=== PATIENT | female | born 1985 | race African-American/Black ===

== ENCOUNTER 2020-08-15 07:56 | Emergency (ER) | payer OTHER, SELFPAY ==
[2020-08-15 07:57] VITALS: BP 116/63; PULSE 86; RESP 18; TEMP 36.3; O2SAT 98; BMI 24.7
--- NOTE | 2020-08-15 08:40 | ED.ALLEREA ---
HPI - Allergic Reaction General Chief complaint: General Medical Stated complaint: ALLERGIC REACTION Time Seen by Provider: 08/15/20 08:37 Source: patient Mode of arrival: ambulatory Limitations: no limitations History of Present Illness MD complaint: allergic reaction and hives Onset (ago): day(s) ( patient reports it has been on and off for 2 years although this new rash started yesterday) Exposure: other ( Possibly Axe cologne) Symptoms: rash and itching Severity: moderate Treatment prior to arrival: benadryl Previous Allergic Reaction History: none Related Data Previous Rx's Medication Instructions Recorded diphenhydramine HCl [Benadryl 50 mg PO TID PRN #20 tab 08/15/20 Allergy] famotidine [Pepcid] 20 mg PO BID #10 tab 08/15/20 hydrocortisone [Anti-Itch (HC)] 1 appl TOPICAL BID PRN #453.6 g 08/15/20 prednisone 40 mg PO DAILY 5 Days #10 tab 08/15/20 Allergies Allergy/AdvReac Type Severity Reaction Status Date / Time venlafaxine [VENLAFAXINE] Allergy Unknown HIVES Unverified 11/01/19 18:46 Review of Systems Review of Systems: Constitutional : No Fever, No Chills , no body aches, no recent illness Head/Face: No facial swelling, No facial redness ENT/Mouth : No oral/throat swelling, No Hoarseness, No Swallowing Difficulty Eyes: No Eye Pain, No Swelling, No Redness Cardiovascular : No Chest Pain, No SOB, No palpitations Respiratory : No Cough, No Sputum, No Wheezing, No Smoke Exposure, No Dyspnea Gastrointestinal : No Nausea, No Vomiting, No Diarrhea, No abdominal Pain Genitourinary : No Dysuria, No Urinary Frequency, No Hematuria Musculoskeletal : No joint pain, No Myalgias, No Joint Swelling Skin : No Skin Lesions, positive rash Neuro : No Weakness, No Numbness, No Headache, No dizziness, No tingling Psych : No Anxiety/Panic, No Depression Heme/Lymph: No Bruising, No Lymphadenopathy Endocrine : No Polyuria, No Polydipsia Patient admits to new cologne Axe cologne which may be causing this Denies changes in lotions or detergents. Denies new medications or any changes in medications. Denies drainage from rash. Denies any recent sick contacts or recent travel. Yes all other systems are reviewed and are negative [facility] Past Medical History Attestation statement: The following information was validated with the patient. Medical History Arthritis Cholecystectomy planned Collapsed lung Social History Social History Advance Directives: No Advance Directives Information Provided: No Physical Exam Vital Signs: Vital Signs: Last Vital Signs Temp 97.4 F 08/15/20 07:57 Pulse 86 08/15/20 07:57 Resp 18 08/15/20 07:57 BP 116/63 08/15/20 07:57 Pulse Ox 98 08/15/20 07:57 Body Mass Index 24.7 vital signs have been reviewed as normal and appeared to be correct. Blood pressure normal. Heart rate normal. Respiration rate normal. Temperature normal. Oxygen saturation normal. Appearance: Alert. Oriented X3. No acute distress. Head: Normal external exam. Normocephalic. Eyes: PERRLA. EOMI. Conjunctiva and sclera normal. Eyelids normal. ENT: Pharynx normal. Uvula midline. Moist mucous membranes. No trismus noted. No drooling noted. No muffled voice noted. Neck: Normal inspection. Neck supple. FROM. No adenopathy. No meningeal signs. CVS: Normal heart rate and rhythm. Heart sound normal. No murmurs noted. Pulses normal throughout. Respiratory: No respiratory distress. Painless inspiration. Breath sounds normal. No wheezes/rales/rhonchi noted. Chest nontender. No accessory muscle usage noted or decreased air movement noted. Abdomen: Soft and nontender. Nondistended. No guarding. No rigidity. Bowel sounds normal in all 4 quadrants. No distention noted. No organomegaly noted. No visible injury noted. Back: Full range of motion noted. Skin: Skin warm and dry. Normal skin color. Normal skin turgor. erythematous blanchable and well demarcated macular papular lesions noted throughout her body consistent with allergic reaction.No lesions/lacerations noted. Extremities: Extremities exhibit normal range of motion. Extremities nontender. Neuro: Oriented X 3. No motor deficit. No sensory deficit. Reflexes normal. Normal steady gait. Course Course Course Narrative: IMP/Plan: Allergic rxn. Not anaphylaxis. Not sepsis/ infectious etiology. Patient well appearing in no acute distress, breathing easily without throat symptoms. Speaking full sentences, and handling secretions without difficulty. There is no obvious threat to airway. Lungs are CTA in all villar. No signs of angioedema, stridor, airway compromise, anaphylaxis or anaphylactic shock. Not c/w SSSS/ TEN/ Eryth multiforme/ Haq Johnsons. Given HPI and PE - Will watch and observe. If patient continues to be symptom free - will d/c with return precautions. Patient understands and agrees with plan MDM - Allergic Reaction Medical Records Attestation: I reviewed the patient's medical records. Discharge Plan Discharge Clinical Impression: Allergic reaction Patient Disposition: Home, Self-Care Instructions: Anaphylaxis (ED), Allergies (ED), Allergy Testing (ED) Prescriptions: New diphenhydramine HCl [Benadryl Allergy] 25 mg tablet 50 mg PO TID PRN (Reason: allergic reaction) Qty: 20 RF: 0 famotidine [Pepcid] 20 mg tablet 20 mg PO BID Qty: 10 RF: 0 prednisone 20 mg tablet 40 mg PO DAILY 5 Days Qty: 10 RF: 0 hydrocortisone [Anti-Itch (HC)] 1 % ointment 1 appl topical BID PRN (Reason: allergic reaction) Qty: 453.6 RF: 0 Referrals: Physician,Unknown [Primary Care Provider] - 2 days ( Your PCP and ask for allergy testing or referral to an russian teacher) Print Language: Croatian
== END 2020-08-15 08:54 | disposition home or self-care (01) ==
PROVIDERS: Emergency Provider Emergency Medicine Emergency Medical Services
DX: T78.40XA Allergy, unspecified, initial encounter (principal); X58.XXXA Exposure to other specified factors, initial encounter
CPT/HCPCS: 99283

== ENCOUNTER 2020-09-02 09:01 | Outpatient (REF) | payer OTHER, SELFPAY ==
[2020-09-02 09:30] LABS: MANUAL DIFF FLAG NO
[2020-09-02 09:40] LABS: Basophils Percent Auto 0.4 % (0-2); Eosinophils Absolute Auto 0.3 X10*3/uL (0.0-0.4); Eosinophils Percent Auto 6.7 % (0-4); Hematocrit 37.6 % (37-47); Hemoglobin 12.2 g/dl (12.0-16.0); Imm Gran Abs Auto 0.01 X10*3/uL (0.00-0.03); Imm Gran Pct Auto 0.2 % (0.0-0.4); Lymphocytes Absolute Auto 1.8 X10*3/uL (1.2-4.9); Lymphocytes Percent Auto 39.4 % (20-40); Mean Corpuscular HGB Conc 32.4 g/dl (31.0-35.0); Mean Corpuscular Hemoglobin 26.4 pg (27.0-33.0); Mean Corpuscular Volume 81.4 fL (80-98); Mean Platelet Volume 9.8 fL (9.4-12.3); Monocytes Absolute Auto 0.3 X10*3/uL (0.1-1.2); Monocytes Percent Auto 7.6 % (2-11); Neutrophils Absolute Auto 2.1 X10*3/uL (2.0-8.3); Neutrophils Percent Auto 45.7 % (45-73); Platelet Count 222 X10*3/uL (160-400); Red Blood Count 4.62 X10*6/uL (4.20-5.50); Red Cell Distribution Width 14.4 % (11.0-16.0); White Blood Count 4.5 X10*3/uL (4.8-10.8)
[2020-09-02 09:48] LABS: Estimated Average Glucose 114 mg/dL; Hemoglobin A1c % 5.6 %
[2020-09-02 10:14] LABS: Alanine Aminotransferase 11 U/L (0-31); Albumin Level 3.9 g/dL (3.5-5.0); Alkaline Phosphatase 60 U/L (39-117); Anion Gap 11 (12-20); Aspartate Amino Transferase 16 U/L (5-31); Bilirubin Total 0.3 mg/dL (0.0-1.0); Blood Urea Nitrogen 9 mg/dL (9-16); Calcium 9.1 mg/dL (8.4-10.2); Carbon Dioxide 22 mmol/L (22-29); Chloride 108 mmol/L (96-108); Cholesterol 136 mg/dL; Estimated Glomerular Filt Rate > 60; Glucose Random 91 mg/dL (60-115); HDL Cholesterol 57 mg/dL; Iron 52 mcg/dL (30-160); LDL Cholesterol Calculated 72 mg/dl; Magnesium 2.1 mg/dL (1.6-2.6); Percent Iron Saturation 17 % (15-50); Potassium 3.9 mmol/L (3.3-5.1); Sodium 137 mmol/L (135-145); Total Iron Binding Capacity 299 mcg/dL (228-428); Total Protein 6.8 g/dL (6.5-8.0); Triglycerides 38 mg/dL; Unsaturated Iron Binding 247 ug/dL
[2020-09-02 10:31] LABS: Ferritin 63 ng/mL (10-122); T4 Thyroxine 6.1 ug/dL (4.5-12.0); Vitamin D 25-OH Total 20.3 ng/mL (>30)
[2020-09-02 10:39] LABS: Folate 13.2 ng/mL (> or = 4.0)
[2020-09-03 15:43] LABS: Vitamin B12 337 pg/mL (200-900)
== END 2020-09-02 09:02 | disposition home or self-care (01) ==
LOC: HO.LAB 09:01
PROVIDERS: Visit Provider Counselor Addiction (Substance Use Disorder)
DX: F33.2 Major depressive disorder, recurrent severe without psychotic features (principal); F41.1 Generalized anxiety disorder; F43.12 Post-traumatic stress disorder, chronic; F19.21 Other psychoactive substance dependence, in remission; F90.0 Attention-deficit hyperactivity disorder, predominantly inattentive type
CPT/HCPCS: 36415; 80053; 80061; 82306; 82607; 82728; 82746; 83036; 83540; 83735; 84436; 84443; 85025

== ENCOUNTER 2021-01-28 18:43 | Emergency (ER) | payer OTHER, SELFPAY ==
[2021-01-28 19:05] VITALS: PULSE 95; RESP 16; TEMP 36.9; O2SAT 99; BMI 22.1
[2021-01-28 19:10] VITALS: BP 123/81
--- NOTE | 2021-01-28 21:34 | ED_ITS ---
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 Patient wants to speak to a counselor and get into detox. Not suicidal or homicidal. Patient states she is tired and thats why she is here. Not suicidal or homi cidal. <Al Spicer MD - Last Filed: 01/29/21 00:04> Onset (ago): hour(s) <Al Spicer MD - Last Filed: 01/29/21 00:04> Severity: moderate <Al Spicer MD - Last Filed: 01/29/21 00:04> Associated symptoms: denies other symptoms <Al Spicer MD - Last Filed: 01/29/21 00:04> Related Data Home medications: Home Medications Medication Instructions Recorded Confirmed fluoxetine 40 mg capsule 1 cap PO DAILY 01/29/21 01/29/21 prazosin 1 mg capsule 1 cap PO BID 01/29/21 01/29/21 quetiapine 25 mg tablet 25 mg PO BEDTIME 01/29/21 01/29/21 <Al Spicer MD - Last Filed: 01/29/21 00:04> Allergies/adverse reactions: Allergies Allergy/AdvReac Type Severity Reaction Status Date / Time venlafaxine [VENLAFAXINE] Allergy Unknown HIVES Unverified 11/01/19 18:46 <Al Spicer MD - Last Filed: 01/29/21 00:04> Review of Systems Constitutional: Constitutional: Reports no additional constitutional complaints <Al Spicer MD - Last Filed: 01/29/21 00:04> Eyes: Eyes: Reports no additional eye complaints <Al Spicer MD - Last Filed: 01/29/21 00:04> ENT: Denies dizziness <Al Spicer MD - Last Filed: 01/29/21 00:04> Cardiovascular: Cardiovascular: Reports no additional cardiovascular complaints <Al Spicer MD - Last Filed: 01/29/21 00:04> Respiratory: Respiratory: Reports as per HPI <Al Spicer MD - Last Filed: 01/29/21 00:04> Gastrointestinal: Gastrointestinal: Reports no additional gastrointestinal complaints <Al Spicer MD - Last Filed: 01/29/21 00:04> Genitourinary: Genitourinary: Reports no additional female genitourinary compl aints <Al Spicer MD - Last Filed: 01/29/21 00:04> Musculoskeletal: Musculoskeletal: Reports no additional musculoskeletal complaints <Al Spicer MD - Last Filed: 01/29/21 00:04> Integumentary/Breasts: Skin/Breast: Denies rash <Al Spicer MD - Last Filed: 01/29/21 00:04> Neurologic: Reports system reviewed and no additional complaints, except as documented, Denies dizziness and Denies Sensory deficit (Neuro) <Al Spicer MD - Last Filed: 01/29/21 00:04> Psychiatric: Psychiatric: Denies anxiety <Al Spicer MD - Last Filed: 01/29/21 00:04> [facility] Past Medical History Medical History: Medical History Arthritis Cholecystectomy planned Collapsed lung <Al Spicer MD - Last Filed: 01/29/21 00:04> Social History Social History: Social History Advance Directives: No Advance Directives Information Provided: Yes <Al Spicer MD - Last Filed: 01/29/21 00:04> Physical Exam Vital Signs: Vital Signs: Last Vital Signs Temp 97.8 F 01/29/21 01:08 Pulse 109 H 01/29/21 01:08 Resp 17 01/29/21 01:08 BP 130/85 01/29/21 01:08 Pulse Ox 99 01/29/21 01:08 BMI result Body Mass Index 22.1 <Al Spicer MD - Last Filed: 01/29/21 00:04> Vital Signs: Last Vital Signs Temp 97.8 F 01/29/21 01:08 Pulse 109 H 01/29/21 01:08 Resp 17 01/29/21 01:08 BP 130/85 01/29/21 01:08 Pulse Ox 99 01/29/21 01:08 BMI result Body Mass Index 22.1 <Pamela Quigley NP - Last Filed: 01/29/21 08:20> Const: Other: jittery and slightly slurred <Al Spicer MD - Last Filed: 01/29/21 00:04> Nutritional Appearance: average body habitus <Al Spicer MD - Last Filed: 01/29/21 00:04> Orientation/consciousness: oriented to person and patient oriented x3 <Al Spicer MD - Last Filed: 01/29/21 00:04> Limitations: no limitations <Al Spicer MD - Last Filed: 01/29/21 00:04> HENMT: Head: Yes normal to inspection <Al Spicer MD - Last Filed: 01/29/21 00:04> Ears: external ears normal <Al Spicer MD - Last Filed: 01/29/21 00:04> General nose exam: Normal external nose present <Al Spicer MD - Last Filed: 01/29/21 00:04> Mouth: Normal oral and palatal mucosa present and oropharynx normal <Al Spicer MD - Last Filed: 01/29/21 00:04> Throat: Yes posterior oropharynx normal <Al Spicer MD - Last Filed: 01/29/21 00:04> Eyes: General: appearance normal, both eyes and all related structures <Al Spicer MD - Last Filed: 01/29/21 00:04> Neck: Other: supple <Al Spicer MD - Last Filed: 01/29/21 00:04> Neck: Yes normal visual inspection <Al Spicer MD - Last Filed: 01/29/21 00:04> Chest: Chest palpation & inspection: normal inspection of the chest <Al Spicer MD - Last Filed: 01/29/21 00:04> Resp: Auscultation: clear to auscultation bilaterally <Al Spicer MD - Last Filed: 01/29/21 00:04> Cardio: Jugular venous distension: no JVD <Al Spicer MD - Last Filed: 01/29/21 00:04> Rate: regular rate <Al Spicer MD - Last Filed: 01/29/21 00:04> Rhythm: regular rhythm <Al Spicer MD - Last Filed: 01/29/21 00:04> Heart sounds: S1 normal heart sound present and S2 normal heart sound present <Al Spicer MD - Last Filed: 01/29/21 00:04> GI: Inspection: Yes normal to inspection <Al Spicer MD - Last Filed: 01/29/21 00:04> Palpation (GI): Soft to palpation, nontender and No hepatosplenomegaly present <Al Spicer MD - Last Filed: 01/29/21 00:04> Auscultation: normal bowel sounds <Al Spicer MD - Last Filed: 01/29/21 00:04> : General: Yes no CVA tenderness <Al Spicer MD - Last Filed: 01/29/21 00:04> Back/Spine/Pelvis: Back: no CVA tenderness <Al Spicer MD - Last Filed: 01/29/21 00:04> Skin: General skin exam: no rashes or lesions noted <Al Spicer MD - Last Filed: 01/29/21 00:04> Neuro: General: oriented to person and patient oriented x3 <Al Spicer MD - Last Filed: 01/29/21 00:04> Cranial nerves: Yes CN's II-XII intact bilaterally <Al Spicer MD - Last Filed: 01/29/21 00:04> Motor exam (neuro): 5/5 motor strength present throughout <Al Spicer MD - Last Filed: 01/29/21 00:04> Sensory Exam: No Sensory deficit (Neuro) <Al Spicer MD - Last Filed: 01/29/21 00:04> Extrem: General: Yes normal to inspection <Al Spicer MD - Last Filed: 01/29/21 00:04> Psych: Appearance: grossly normal <Al Spicer MD - Last Filed: 01/29/21 00:04> Course Reevaluation(s) Reevaluation #1: physician observation started at 11:50pm, reason for observation is recovery team to re evaluate for placement in a program tomorrow. Vitals are stable resting more comfortably now. <Al Spicer MD - Last Filed: 01/29/21 00:04> Time: 00:03 <Al Spicer MD - Last Filed: 01/29/21 00:04> Reevaluation #2: 01/29 815-patient is currently pending a evaluation by the assistant men's lacrosse coach. No complaints per nursing overnight. Vital signs reviewed and stable. Respiratory even labored. Will continue physician observation pending disposition <Pamela Quigley NP - Last Filed: 01/29/21 08:20> Medical Decision Making Lab Data Result diagrams: : 01/28/21 21:57 01/28/21 21:57 <Al Spicer MD - Last Filed: 01/29/21 00:04> Labs: Lab Results 01/28/21 01/28/21 01/28/21 Range/Units 21:53 21:57 21:57 WBC 5.3 (4.8-10.8) X10*3/uL RBC 4.92 (4.20-5.50) X10*6/uL Hgb 13.4 (12.0-16.0) g/dl Hct 40.3 (37.0-47.0) % MCV 81.9 (80.0-98.0) fL MCH 27.2 (27.0-33.0) pg MCHC 33.3 (31.0-35.0) g/dl RDW 13.5 (11.0-16.0) % Plt Count 244 (160-400) X10*3/uL MPV 9.9 (9.4-12.3) fL Immature Gran % (Auto) 0.2 (0.0-0.4) % Neut % (Auto) 44.1 L (45-73) % Lymph % (Auto) 42.4 H (20-40) % [place] % (Auto) 8.9 (2-11) % Eos % (Auto) 3.8 (0-4) % Baso % (Auto) 0.6 (0-2) % Lymph # (Auto) 2.2 (1.2-4.9) X10*3/uL [place] # (Auto) 0.5 (0.1-1.2) X10*3/uL Eos # (Auto) 0.2 (0.0-0.4) X10*3/uL Baso # (Auto) 0.0 (0.0-0.2) X10*3/uL Abs Immat Gran (auto) 0.01 (0.00-0.03) X10*3/uL Absolute Neuts (auto) 2.3 (2.0-8.3) x10*3/uL Absolute Nucleated RBC 0.000 (0.0-0.012) X10*3/uL Nucleated RBC % (auto) 0.0 (0.0-0.2) /100WBC Sodium 141 (135-145) mmol/L Potassium 3.4 (3.3-5.1) mmol/L Chloride 110 H (96-108) mmol/L Carbon Dioxide 24 (22-29) mmol/L Anion Gap 10 L (12-20) BUN 7 L (9-16) mg/dL Creatinine 0.84 (0.5-1.4) mg/dL Estim Creat Clear Calc 97.7 Estimated GFR > 60 Random Glucose 95 (60-115) mg/dL Calcium 9.5 (8.4-10.2) mg/dL Total Bilirubin 0.2 (0.0-1.0) mg/dL AST 30 D (5-31) U/L ALT 22 (0-31) U/L Alkaline Phosphatase 63 (39-117) U/L Total Protein 7.1 (6.5-8.0) g/dL Albumin 4.1 (3.5-5.0) g/dL Urine Color Urine Appearance Urine pH (5.0-8.0) Ur Specific [place] (1.005-1.025) Urine Protein (NEG-TRACE) MG/DL Urine Glucose (UA) (NEG) MG/DL Urine Ketones (NEG) MG/DL Urine Blood (NEG) Urine Nitrite (NEG) Ur Leukocyte Esterase (NEG) Urine Opiates Screen (Not Detect) Urine Fentanyl Screen (Not Detect) Ur Barbiturates Screen (Not Detect) Ur Phencyclidine Scrn (Not Detect) Ur Amphetamines Screen (Not Detect) U Benzodiazepines Scrn (Not Detect) Urine Cocaine Screen (Not Detect) U Marijuana (THC) Screen (Not Detect) Ethyl Alcohol mg/dL COVID-19 ([facility]) Negative (Negative) COVID-19 Clin Com See Note 01/28/21 01/28/21 01/28/21 Range/Units 21:57 21:57 22:08 WBC (4.8-10.8) X10*3/uL RBC (4.20-5.50) X10*6/uL Hgb (12.0-16.0) g/dl Hct (37.0-47.0) % MCV (80.0-98.0) fL MCH (27.0-33.0) pg MCHC (31.0-35.0) g/dl RDW (11.0-16.0) % Plt Count (160-400) X10*3/uL MPV (9.4-12.3) fL Immature Gran % (Auto) (0.0-0.4) % Neut % (Auto) (45-73) % Lymph % (Auto) (20-40) % [place] % (Auto) (2-11) % Eos % (Auto) (0-4) % Baso % (Auto) (0-2) % Lymph # (Auto) (1.2-4.9) X10*3/uL [place] # (Auto) (0.1-1.2) X10*3/uL Eos # (Auto) (0.0-0.4) X10*3/uL Baso # (Auto) (0.0-0.2) X10*3/uL Abs Immat Gran (auto) (0.00-0.03) X10*3/uL Absolute Neuts (auto) (2.0-8.3) x10*3/uL Absolute Nucleated RBC (0.0-0.012) X10*3/uL Nucleated RBC % (auto) (0.0-0.2) /100WBC Sodium (135-145) mmol/L Potassium (3.3-5.1) mmol/L Chloride (96-108) mmol/L Carbon Dioxide (22-29) mmol/L Anion Gap (12-20) BUN (9-16) mg/dL Creatinine (0.5-1.4) mg/dL Estim Creat Clear Calc Estimated GFR Random Glucose (60-115) mg/dL Calcium (8.4-10.2) mg/dL Total Bilirubin (0.0-1.0) mg/dL AST (5-31) U/L ALT (0-31) U/L Alkaline Phosphatase (39-117) U/L Total Protein (6.5-8.0) g/dL Albumin (3.5-5.0) g/dL Urine Color YELLOW Urine Appearance CLEAR Urine pH 5.5 (5.0-8.0) Ur Specific [place] >= 1.030 H (1.005-1.025) Urine Protein NEG (NEG-TRACE) MG/DL Urine Glucose (UA) NEG (NEG) MG/DL Urine Ketones NEG (NEG) MG/DL Urine Blood NEG (NEG) Urine Nitrite NEG (NEG) Ur Leukocyte Esterase NEG (NEG) Urine Opiates Screen Not Detected (Not Detect) Urine Fentanyl Screen POSITIVE H (Not Detect) Ur Barbiturates Screen Not Detected (Not Detect) Ur Phencyclidine Scrn Not Detected (Not Detect) Ur Amphetamines Screen Not Detected (Not Detect) U Benzodiazepines Scrn Not Detected (Not Detect) Urine Cocaine Screen POSITIVE H (Not Detect) U Marijuana (THC) Screen Not Detected (Not Detect) Ethyl Alcohol < 10 mg/dL COVID-19 ([facility]) (Negative) COVID-19 Clin Com <Al Spicer MD - Last Filed: 01/29/21 00:04> Lab Results 01/28/21 01/28/21 01/28/21 Range/Units 21:53 21:57 21:57 WBC 5.3 (4.8-10.8) X10*3/uL RBC 4.92 (4.20-5.50) X10*6/uL Hgb 13.4 (12.0-16.0) g/dl Hct 40.3 (37.0-47.0) % MCV 81.9 (80.0-98.0) fL MCH 27.2 (27.0-33.0) pg MCHC 33.3 (31.0-35.0) g/dl RDW 13.5 (11.0-16.0) % Plt Count 244 (160-400) X10*3/uL MPV 9.9 (9.4-12.3) fL Immature Gran % (Auto) 0.2 (0.0-0.4) % Neut % (Auto) 44.1 L (45-73) % Lymph % (Auto) 42.4 H (20-40) % [place] % (Auto) 8.9 (2-11) % Eos % (Auto) 3.8 (0-4) % Baso % (Auto) 0.6 (0-2) % Lymph # (Auto) 2.2 (1.2-4.9) X10*3/uL [place] # (Auto) 0.5 (0.1-1.2) X10*3/uL Eos # (Auto) 0.2 (0.0-0.4) X10*3/uL Baso # (Auto) 0.0 (0.0-0.2) X10*3/uL Abs Immat Gran (auto) 0.01 (0.00-0.03) X10*3/uL Absolute Neuts (auto) 2.3 (2.0-8.3) x10*3/uL Absolute Nucleated RBC 0.000 (0.0-0.012) X10*3/uL Nucleated RBC % (auto) 0.0 (0.0-0.2) /100WBC Sodium 141 (135-145) mmol/L Potassium 3.4 (3.3-5.1) mmol/L Chloride 110 H (96-108) mmol/L Carbon Dioxide 24 (22-29) mmol/L Anion Gap 10 L (12-20) BUN 7 L (9-16) mg/dL Creatinine 0.84 (0.5-1.4) mg/dL Estim Creat Clear Calc 97.7 Estimated GFR > 60 Random Glucose 95 (60-115) mg/dL Calcium 9.5 (8.4-10.2) mg/dL Total Bilirubin 0.2 (0.0-1.0) mg/dL AST 30 D (5-31) U/L ALT 22 (0-31) U/L Alkaline Phosphatase 63 (39-117) U/L Total Protein 7.1 (6.5-8.0) g/dL Albumin 4.1 (3.5-5.0) g/dL Urine Color Urine Appearance Urine pH (5.0-8.0) Ur Specific [place] (1.005-1.025) Urine Protein (NEG-TRACE) MG/DL Urine Glucose (UA) (NEG) MG/DL Urine Ketones (NEG) MG/DL Urine Blood (NEG) Urine Nitrite (NEG) Ur Leukocyte Esterase (NEG) Urine Opiates Screen (Not Detect) Urine Fentanyl Screen (Not Detect) Ur Barbiturates Screen (Not Detect) Ur Phencyclidine Scrn (Not Detect) Ur Amphetamines Screen (Not Detect) U Benzodiazepines Scrn (Not Detect) Urine Cocaine Screen (Not Detect) U Marijuana (THC) Screen (Not Detect) Ethyl Alcohol mg/dL COVID-19 ([facility]) Negative (Negative) COVID-19 Clin Com See Note 01/28/21 01/28/21 01/28/21 Range/Units 21:57 21:57 22:08 WBC (4.8-10.8) X10*3/uL RBC (4.20-5.50) X10*6/uL Hgb (12.0-16.0) g/dl Hct (37.0-47.0) % MCV (80.0-98.0) fL MCH (27.0-33.0) pg MCHC (31.0-35.0) g/dl RDW (11.0-16.0) % Plt Count (160-400) X10*3/uL MPV (9.4-12.3) fL Immature Gran % (Auto) (0.0-0.4) % Neut % (Auto) (45-73) % Lymph % (Auto) (20-40) % [place] % (Auto) (2-11) % Eos % (Auto) (0-4) % Baso % (Auto) (0-2) % Lymph # (Auto) (1.2-4.9) X10*3/uL [place] # (Auto) (0.1-1.2) X10*3/uL Eos # (Auto) (0.0-0.4) X10*3/uL Baso # (Auto) (0.0-0.2) X10*3/uL Abs Immat Gran (auto) (0.00-0.03) X10*3/uL Absolute Neuts (auto) (2.0-8.3) x10*3/uL Absolute Nucleated RBC (0.0-0.012) X10*3/uL Nucleated RBC % (auto) (0.0-0.2) /100WBC Sodium (135-145) mmol/L Potassium (3.3-5.1) mmol/L Chloride (96-108) mmol/L Carbon Dioxide (22-29) mmol/L Anion Gap (12-20) BUN (9-16) mg/dL Creatinine (0.5-1.4) mg/dL Estim Creat Clear Calc Estimated GFR Random Glucose (60-115) mg/dL Calcium (8.4-10.2) mg/dL Total Bilirubin (0.0-1.0) mg/dL AST (5-31) U/L ALT (0-31) U/L Alkaline Phosphatase (39-117) U/L Total Protein (6.5-8.0) g/dL Albumin (3.5-5.0) g/dL Urine Color YELLOW Urine Appearance CLEAR Urine pH 5.5 (5.0-8.0) Ur Specific [place] >= 1.030 H (1.005-1.025) Urine Protein NEG (NEG-TRACE) MG/DL Urine Glucose (UA) NEG (NEG) MG/DL Urine Ketones NEG (NEG) MG/DL Urine Blood NEG (NEG) Urine Nitrite NEG (NEG) Ur Leukocyte Esterase NEG (NEG) Urine Opiates Screen Not Detected (Not Detect) Urine Fentanyl Screen POSITIVE H (Not Detect) Ur Barbiturates Screen Not Detected (Not Detect) Ur Phencyclidine Scrn Not Detected (Not Detect) Ur Amphetamines Screen Not Detected (Not Detect) U Benzodiazepines Scrn Not Detected (Not Detect) Urine Cocaine Screen POSITIVE H (Not Detect) U Marijuana (THC) Screen Not Detected (Not Detect) Ethyl Alcohol < 10 mg/dL COVID-19 ([facility]) (Negative) COVID-19 Clin Com <Pamela Quigley NP - Last Filed: 01/29/21 08:20> Discharge Plan Discharge Clinical Impression: Polysubstance abuse <Al Spicer MD - Last Filed: 01/29/21 00:04> Prescriptions: No Action fluoxetine 40 mg capsule 1 cap PO DAILY RF: 0 prazosin 1 mg capsule 1 cap PO BID RF: 0 quetiapine 25 mg tablet 25 mg PO BEDTIME RF: 0 <Al pSicer MD - Last Filed: 01/29/21 00:04>
--- NOTE | 2021-01-28 21:54 | MHC.RECOVSUP ---
? Reason for consult: Counter Professional Support o ? ? ?Current location: ?[facility] o ? ? ?Identified substance use concern: Crack/Cocaine Alcohol, Heroine - Withdrawal - Seeking ATS (detox) - Support ? ?Intervention: o MAT started or to be started o Community resources provided o Harm reduction discussion ? Plan: o Referral to [facility] o Bed search in progress to o Follow up tomorrow ? ? Additional information:?I was able to connect with Pt and suggest detox and treatment. Pt. was extremely physically uncomfortable and I suggested a MAT with team. Pt. is willing to go to detox maxi. I was able to call area detox's but no answer. Care team was notified.
[2021-01-28 22:01] VITALS: BP 126/72; PULSE 100; RESP 18; TEMP 36.7; O2SAT 100
[2021-01-28 22:03] LABS: MANUAL DIFF FLAG NO
[2021-01-28] MEDS: methADONE HCl 20 MG/2 ML ORAL.CONC PO (22:04)
[2021-01-28 22:05] LABS: Basophils Percent Auto 0.6 % (0-2); Eosinophils Absolute Auto 0.2 X10*3/uL (0.0-0.4); Eosinophils Percent Auto 3.8 % (0-4); Hematocrit 40.3 % (37.0-47.0); Hemoglobin 13.4 g/dl (12.0-16.0); Imm Gran Abs Auto 0.01 X10*3/uL (0.00-0.03); Imm Gran Pct Auto 0.2 % (0.0-0.4); Lymphocytes Absolute Auto 2.2 X10*3/uL (1.2-4.9); Lymphocytes Percent Auto 42.4 % (20-40); Mean Corpuscular HGB Conc 33.3 g/dl (31.0-35.0); Mean Corpuscular Hemoglobin 27.2 pg (27.0-33.0); Mean Corpuscular Volume 81.9 fL (80.0-98.0); Mean Platelet Volume 9.9 fL (9.4-12.3); Monocytes Absolute Auto 0.5 X10*3/uL (0.1-1.2); Monocytes Percent Auto 8.9 % (2-11); Neutrophils Absolute Auto 2.3 x10*3/uL (2.0-8.3); Neutrophils Percent Auto 44.1 % (45-73); Platelet Count 244 X10*3/uL (160-400); Red Blood Count 4.92 X10*6/uL (4.20-5.50); Red Cell Distribution Width 13.5 % (11.0-16.0); White Blood Count 5.3 X10*3/uL (4.8-10.8)
[2021-01-28 22:20] LABS: COVID-19 Test Negative (Negative)
[2021-01-28 22:21] LABS: Ethanol < 10 mg/dL
[2021-01-28 22:25] LABS: Alanine Aminotransferase 22 U/L (0-31); Albumin Level 4.1 g/dL (3.5-5.0); Alkaline Phosphatase 63 U/L (39-117); Anion Gap 10 (12-20); Aspartate Amino Transferase 30 U/L (5-31); Bilirubin Total 0.2 mg/dL (0.0-1.0); Blood Urea Nitrogen 7 mg/dL (9-16); Calcium 9.5 mg/dL (8.4-10.2); Carbon Dioxide 24 mmol/L (22-29); Chloride 110 mmol/L (96-108); Creatinine Clr Calc Pharmacy 97.7; Estimated Glomerular Filt Rate > 60; Glucose Random 95 mg/dL (60-115); Potassium 3.4 mmol/L (3.3-5.1); Sodium 141 mmol/L (135-145); Total Protein 7.1 g/dL (6.5-8.0)
[2021-01-28 22:29] LABS: Amphetamine Screen Urine Not Detected (Not Detect); Barbiturates, Urine Not Detected (Not Detect); Benzodiazepines Screen Urine Not Detected (Not Detect); Cannabinoid Screen Urine Not Detected (Not Detect); Cocaine Screen Urine POSITIVE (Not Detect); Fentanyl, urine POSITIVE (Not Detect); Opiate Screen Urine Not Detected (Not Detect); Phencyclidine Screen Urine Not Detected (Not Detect)
--- NOTE | 2021-01-29 00:06 | MHC.CARE ---
Pt met with Radha, from recovery team. Plan is for pt to remain the night and meet with recovery team tomorrow for possible detox admission.
[2021-01-29 00:12] VITALS: BP 132/74; PULSE 82; RESP 16; TEMP 36.5; O2SAT 98
[2021-01-29 01:08] VITALS: BP 130/85; PULSE 109; RESP 17; TEMP 36.6; O2SAT 99
[2021-01-29 01:27] LABS: Appearance Urine CLEAR; Color Urine YELLOW; Glucose Urine UA NEG (NEG); Leukocyte Esterase Urine NEG (NEG); Nitrite Urine NEG (NEG); PH 5.5 (5.0-8.0); Specific Gravity - Urine >= 1.030 (1.005-1.025); UACC Culture Trigger NO; Urine Blood NEG (NEG); Urine Ketones NEG (NEG); Urine Protein NEG (NEG-TRACE)
--- NOTE | 2021-01-29 07:07 | PC.NURSE ---
Patient slept through the night, no distress observed/reported, behavior appropriate, patient is refereed to power and recovery supervisor for detox bed search, vss, will continue to monitor.
--- NOTE | 2021-01-29 07:27 | PC.NURSE ---
patient appears to rmain at rest at present, respirations are even and unlabored, patient appears in no distress
--- NOTE | 2021-01-29 11:44 | MHC.RECOVSUP ---
? Reason for consult:Recovery Support o Current location:[facility] o Identified substance use concern:Heroine/Crack - Seeking ATS (detox) - Support ? Intervention: o ATS bed search started/completed/in process o Community resources provided o Harm reduction discussion ? Plan: o Bed search in progress to o Patient to follow up with [facility] after discharge ? Additional information:Patient going to [facility] at 3:00pm
== END 2021-01-29 14:22 | disposition other institution (70) ==
PROVIDERS: Emergency Provider Emergency Medicine; PCP Internal Medicine
DX: F11.20 Opioid dependence, uncomplicated (principal); F10.20 Alcohol dependence, uncomplicated; F14.90 Cocaine use, unspecified, uncomplicated; Z20.822 Contact with and (suspected) exposure to COVID-19
CPT/HCPCS: 36415; 80053; 80307; 81003; 82077; 85025; 87635; 99284; 99285